=== PATIENT | female | born 1945 | race Caucasian/White ===

== ENCOUNTER 2018-02-14 23:19 | Observation (INO) ==
[2018-02-14] MEDS ORDERED: Morphine Sulfate Inj 2 MG/ML Vial IV.PUSH ONE (23:38)
--- NOTE | 2018-02-14 23:39 | ED ---
HPI General Chief Complaint: Shortness of Breath/Dyspnea Stated Complaint: Back pain Time Seen by Provider: 02/14/18 23:32 Source: patient and family Mode of arrival: ambulatory Limitations: no limitations History of Present Illness 73-year-old female came to the emergency room with her family with history of shortness of breath and mid back pain for past 1 day. Symptoms have progressively worsened. Patient says the mid back pain is a dull ache, nonradiating and 7 out of 10. The pain is worse upon inspiration. Patient has been coughing but it is mostly dry. No history of fever or chills. No history of sick contacts. No past history of DVT or PE. No prolonged immobilization history. Patient says she is otherwise healthy and just takes a baby aspirin twice a week. However her blood pressure on arrival was 185 systolic. No history of headache or blurred vision. No history of leg swelling. Patient is not a smoker. Complaint: Reports shortness of breath and cough Onset (ago): day(s) Severity: moderate Consistency/Duration: constant Relieving factors: nothing Exacerbating factors: coughing and inspiration Associated symptoms: Reports chest pain Treatment prior to arrival: Reports none Related Data Home Medications Medication Instructions Recorded Confirmed lansoprazole 30 mg PO DAILY 02/15/18 02/15/18 Allergies Allergy/AdvReac Type Severity Reaction Status Date / Time No Known Allergies Allergy Verified 02/14/18 23:23 Review of Systems ROS: all other systems reviewed are negative PMFSH History History Provided By: Patient Medical History Medical History (Reviewed 02/15/18 @ 01:16 EST by Germán Shin MD) GERD (gastroesophageal reflux disease) (Acute) Social History Social History (Reviewed 02/15/18 @ 01:16 EST by Germán Shin MD) Substance History: No History of Abuse Second Hand Smoke Exposure: Yes Smoking Status: Never smoker How Often Do You Have a Drink Containing Alcohol: Never Recent Travel in [facility] within the Last 8 Weeks: Yes Recent Out of Country Travel within the Last 8 Weeks: Yes Exam Narrative Exam Narrative: GENERAL: Awake, alert, anxious, mild distress SKIN: Focused skin assessment warm/dry. HEAD: Atraumatic. Normocephalic. EYES: Pupils equal and round. No scleral icterus. No injection or drainage. ENT: No nasal bleeding or discharge. Mucous membranes pink and moist. NECK: Trachea midline. No JVD. CARDIOVASCULAR: Regular rate and rhythm. No murmur appreciated. RESPIRATORY: No accessory muscle use. Clear to auscultation. Breath sounds equal bilaterally. GASTROINTESTINAL: Abdomen soft, non-tender, nondistended. Hepatic and splenic margins not palpable. MUSCULOSKELETAL: No obvious deformities. No clubbing. No cyanosis. No edema. NEUROLOGICAL: Awake and alert. No obvious cranial nerve deficits. Motor grossly within normal limits. Normal speech. PSYCHIATRIC: Appropriate mood and affect; insight and judgment normal. Course Initial Documented Vital Signs Temperature 98.4 F 02/14/18 23:20 Pulse Rate 85 02/14/18 23:20 Respiratory Rate 16 02/14/18 23:20 Blood Pressure 204/94 H 02/14/18 23:20 Pulse Oximetry 96 02/14/18 23:20 Last Documented Vital Signs Temperature 97.7 F 02/15/18 08:00 Pulse Rate 54 L 02/15/18 08:00 Respiratory Rate 16 02/15/18 08:00 Blood Pressure 132/75 02/15/18 08:00 Pulse Oximetry 96 02/15/18 08:10 Medical Decision Making MDM Narrative Medical decision making narrative: 1:16 AM patient was given morphine for her pain after which the pain subsided to a level 3-4. Blood pressure has satisfactory come down. Patient appears to be more relaxed at this point. Blood test results are back and patient is hyperglycemic but rest of her test results are within normal limits. A CT pulmonary angiogram was ordered to rule out PE given her symptoms which is negative for PE. I decided to admit her to the chest pain center. I explained this to the patient and her family and she is in agreement with that. Patient has never had a stress test in the past. Medical Screen Exam Complete: Yes Emergency Medical Condition: Yes Lab Data Result diagrams: 02/14/18 23:35 02/14/18 23:35 Lab Results 02/14/18 02/14/18 02/14/18 Range/Units 23:35 23:35 23:35 WBC 9.3 (4.0-11.0) th/mm3 RBC 3.80 L (4.00-5.30) mil/mm3 Hgb 12.9 (11.6-15.3) gm/dL Hct 39.2 (35.0-46.0) % MCV 102.9 H (80.0-100.0) fL MCH 34.0 (27.0-34.0) pg MCHC 33.0 (32.0-36.0) % RDW 13.4 (11.6-17.2) % Plt Count 242 (150-450) th/mm3 MPV 8.3 (7.0-11.0) fL Neut % (Auto) 61.6 (16.0-70.0) % Lymph % (Auto) 26.1 (9.0-44.0) % [place] % (Auto) 10.4 H (0.0-8.0) % Eos % (Auto) 1.6 (0.0-4.0) % Baso % (Auto) 0.3 (0.0-2.0) % Neut # (Auto) 5.7 (1.8-7.7) th/mm3 Lymph # (Auto) 2.4 (1.0-4.8) th/mm3 [place] # (Auto) 1.0 H (0.0-0.9) th/mm3 Eos # (Auto) 0.2 (0.0-0.4) th/mm3 Baso # (Auto) 0.0 (0.0-0.2) th/mm3 WBC Differential . Differential Comment Auto diff final Sodium 142 (136-145) meq/L Potassium 3.6 (3.5-5.1) meq/L Chloride 104 (98-107) meq/L Carbon Dioxide 31.1 (21.0-32.0) meq/L Anion Gap 7 (5-15) meq/L BUN 21 H (7-18) mg/dL Creatinine 0.98 (0.50-1.00) mg/dL Estimated GFR 56 L (>89) mL/min Random Glucose 187 H (74-106) mg/dL Calcium 8.7 (8.5-10.1) mg/dL Total Bilirubin 0.3 (0.2-1.0) mg/dL AST 20 (15-37) U/L ALT 23 (10-53) U/L Alkaline Phosphatase 90 (45-117) U/L Total Creatine Kinase (26-192) U/L Troponin I Less than 0.02 L (0.02-0.05) ng/mL B-Natriuretic Peptide 20 (0-100) pg/mL Total Protein 7.0 (6.4-8.2) g/dL Albumin 3.6 (3.4-5.0) g/dL 02/15/18 02/15/18 Range/Units 02:31 05:00 WBC (4.0-11.0) th/mm3 RBC (4.00-5.30) mil/mm3 Hgb (11.6-15.3) gm/dL Hct (35.0-46.0) % MCV (80.0-100.0) fL MCH (27.0-34.0) pg MCHC (32.0-36.0) % RDW (11.6-17.2) % Plt Count (150-450) th/mm3 MPV (7.0-11.0) fL Neut % (Auto) (16.0-70.0) % Lymph % (Auto) (9.0-44.0) % [place] % (Auto) (0.0-8.0) % Eos % (Auto) (0.0-4.0) % Baso % (Auto) (0.0-2.0) % Neut # (Auto) (1.8-7.7) th/mm3 Lymph # (Auto) (1.0-4.8) th/mm3 [place] # (Auto) (0.0-0.9) th/mm3 Eos # (Auto) (0.0-0.4) th/mm3 Baso # (Auto) (0.0-0.2) th/mm3 WBC Differential Differential Comment Sodium (136-145) meq/L Potassium (3.5-5.1) meq/L Chloride (98-107) meq/L Carbon Dioxide (21.0-32.0) meq/L Anion Gap (5-15) meq/L BUN (7-18) mg/dL Creatinine (0.50-1.00) mg/dL Estimated GFR (>89) mL/min Random Glucose (74-106) mg/dL Calcium (8.5-10.1) mg/dL Total Bilirubin (0.2-1.0) mg/dL AST (15-37) U/L ALT (10-53) U/L Alkaline Phosphatase (45-117) U/L Total Creatine Kinase 72 70 (26-192) U/L Troponin I Less than 0.02 L Less than 0.02 L (0.02-0.05) ng/mL B-Natriuretic Peptide (0-100) pg/mL Total Protein (6.4-8.2) g/dL Albumin (3.4-5.0) g/dL Imaging Data Radiologist's impression: Chest X-Ray 02/14/18 23:32 CONCLUSION: No acute disease Chest CTA 02/15/18 00:00 CONCLUSION: This study is negative for pulmonary embolism. ECG Data Attestation: I personally reviewed and interpreted this ECG as follows: Interpretation: Twelve-lead EKG was reviewed by me. Normal sinus rhythm, normal axis, nonspecific ST-T wave changes. Heart rate of 73 bpm. Discharge Plan Discharge Disposition Patient Disposition: 30 Still Patient Discharge Condition Condition: Good Discharge Order Discharge Orders: Discharge Order (Routine); Ordered 02/15/18 Ordered By: Nel Hernandez Discharge Details Anticipated Discharge Date: 02/15/18 Physicians Team ED Provider: Germán Shin Primary Care Provider: Cabrera Denis Attending Provider: Ashwin Lainez Other Providers: Rhonda Ellis Status ED Status: Left Department Discharge Information Discharge Date/Time: 02/15/18 02:44
[2018-02-14 23:59] LABS: Baso % (Auto) 0.3 % (0.0-2.0); Eos # (Auto) 0.2 th/mm3 (0.0-0.4); Eos % (Auto) 1.6 % (0.0-4.0); Hematocrit 39.2 % (35.0-46.0); Hemoglobin 12.9 gm/dL (11.6-15.3); Lymph # (Auto) 2.4 th/mm3 (1.0-4.8); Lymph % (Auto) 26.1 % (9.0-44.0); Mean Corpuscular Volume 102.9 fL (80.0-100.0); Mean Platelet Volume 8.3 fL (7.0-11.0); Mono % (Auto) 10.4 % (0.0-8.0); Neut # (Auto) 5.7 th/mm3 (1.8-7.7); Neut % (Auto) 61.6 % (16.0-70.0); Platelet Count 242 th/mm3 (150-450); Red Cell Distribution Width 13.4 % (11.6-17.2); White Blood Count 9.3 th/mm3 (4.0-11.0)
--- NOTE | 2018-02-15 00:06 | XR ---
EXAM DATE: 02/14/2018 11:58 PM EDT AGE/SEX: 73 years / Female INDICATIONS: Upper left side chest and back pain for 3 days. CLINICAL DATA: This is the patient's initial encounter. Patient reports that signs and symptoms have been present for 3 days and indicates a pain score of 6/10. MEDICAL/SURGICAL HISTORY: Gastroesophageal reflux disease. None. COMPARISON: No prior exams available for comparison. FINDINGS: A single AP view of the chest demonstrates the lungs to be symmetrically aerated without evidence of mass, infiltrate or effusion. The cardiomediastinal contours are unremarkable. Osseous structures a re intact. CONCLUSION: No acute disease Electronically signed by: August Jimenez MD 02/15/2018 12:05 AM EDT
[2018-02-15 00:13] LABS: Albumin 3.6 g/dL (3.4-5.0); Anion Gap 7 meq/L (5-15); Aspartate Aminotransferase 20 U/L (15-37); Blood Urea Nitrogen 21 mg/dL (7-18); Calcium 8.7 mg/dL (8.5-10.1); Carbon Dioxide 31.1 meq/L (21.0-32.0); Chloride 104 meq/L (98-107); Glomerular Filtration Rate 56 mL/min (>89); Glucose,Random 187 mg/dL (74-106); Potassium 3.6 meq/L (3.5-5.1); Sodium 142 meq/L (136-145)
[2018-02-15 00:18] LABS: Alanine Aminotransferase 23 U/L (10-53); Alkaline Phosphatase 90 U/L (45-117)
--- NOTE | 2018-02-15 01:13 | CT ---
EXAM DATE: 02/15/2018 12:55 AM EDT AGE/SEX: 73 years / Female INDICATIONS: Shortness of breath, back pain and cough for two days. CLINICAL DATA: This is the patient's initial encounter. Patient reports that signs and symptoms have been present for 1 day and indicates a pain score of 8/10. MEDICAL/SURGICAL HISTORY: Gastroesophageal reflux disease. None. RADIATION DOSE: 7.86 CTDI (mGy) COMPARISON: C, CHEST 1V SINGLE AP, 02/14/2018. . TECHNIQUE: Volumetric scanning was performed using a multi-row detector CT scanner during bolus infu nawaf of 70 ml Omnipaque 350 (iohexol) nonionic water-soluble contrast as a single exam dose. The aram a was post processed with a variety of visualization algorithms including full volume maximum intensi ty projection and sliding thin slab reformation. Using automated exposure control and adjustment of the mA and/or kV according to patient size, radiation dose was kept as low as reasonably achievable t o obtain optimal diagnostic quality images. DICOM format image data is available electronically for review and comparison. FINDINGS: Pulmonary Arteries: No filling defects are seen in the pulmonary arteries out to the subsegmental ve ssels. The left and right pulmonary arteries are normal in diameter. Lung: No infiltrates seen. Effusion: None. Mediastinum: No evidence of mediastinal or hilar adenopathy. Other: The axilla is unremarkable. CONCLUSION: This study is negative for pulmonary embolism. Electronically signed by: August Jimenez MD 02/15/2018 1:11 AM EST
[2018-02-15 03:20] LABS: Creatine Kinase 72 U/L (26-192)
[2018-02-15 05:12] VITALS: RESP 16; TEMP 97.7; O2SAT 96
[2018-02-15 05:47] LABS: Creatine Kinase 70 U/L (26-192)
[2018-02-15] MEDS ORDERED: Acetaminophen 500 MG Tablet PO PRN (08:00)
[2018-02-15 08:36] VITALS: BP 132/75
[2018-02-15 08:49] VITALS: PULSE 54
--- NOTE | 2018-02-15 10:03 | P.HPCA ---
History of Present Illness Service: Chest pain center Primary Care Physician: Cabrera Denis Chief Complaint: Sharp mid back pain of seconds duration History of Present Illness: 73-year-old lady who recently took a trip to [facility] with her . They both contacted a cold-like illness while there and she has persisted with a cough ever since. The cough is nonproductive there is been no fever or chills but it is been worrisome. About 3 days ago she began to have some extremely sharp pain in her mid back precipitated by coughing or deep breathing but occasionally occurring without provocation. The pain is 7 out of 10 but lasts for only a few seconds. It is not precipitated by exertion and relieved by rest and there are no other associated factors. Patient does have a history of osteopenia but has had no further problems with her back. Her only other history is that of acid reflux followed by Dr. Cain. Review of Systems All other systems reviewed negative except as stated in HPI PMFSH - History History Provided By: Patient - Medical History Medical History: Medical History (Last Reviewed 02/15/18 @ 01:16 EST by Germán Shin MD) GERD (gastroesophageal reflux disease) - Social History I have reviewed the patient's Social History: Yes - Tobacco History Second Hand Smoke Exposure: Yes Smoking Status: Never smoker - Alcohol History How Often Do You Have a Drink Containing Alcohol: Never - Substance Use History Substance History: No History of Abuse - Travel History Recent Travel in the [place] Within the Last 8 Weeks: Yes Recent Travel Out of the Country Within the Last 8 Weeks: Yes - Immunization History Tetanus Immunization: <5 Years Medications and Allergies Active Medications: Active Medications Acetaminophen (Tylenol) 500 mg PO Q4H PRN PRN Reason: HEADACHE Nitroglycerin (Nitrostat Sl) 0.4 mg SL Q5M PRN PRN Reason: CHEST PAIN Ondansetron HCl (Zofran Inj) 4 mg IV.PUSH Q6H PRN PRN Reason: NAUSEA Sodium Chloride (Ns Flush) 2 ml IV.FLUSH UNSCH PRN PRN Reason: FLUSH AFTER USING IV ACCESS Last Admin: 02/14/18 23:44 Dose: 2 ml Sodium Chloride (Ns Flush) 2 ml IV.FLUSH BID VICKI Last Admin: 02/15/18 08:12 Dose: 2 ml Sodium Chloride (Ns Flush) 2 ml IV.FLUSH PRN PRN PRN Reason: FLUSH AFTER USING IV ACCESS Allergies Allergy/AdvReac Type Severity Reaction Status Date / Time No Known Allergies Allergy Verified 02/14/18 23:23 Home Medications Medication Instructions Recorded Confirmed Type lansoprazole 30 mg PO DAILY 02/15/18 02/15/18 History Exam Vital signs: Vital Signs 02/14/18 23:20 02/14/18 23:23 02/14/18 23:43 Temperature 98.4 F Pulse Rate 85 59 L Respiratory Rate 16 18 Blood Pressure 204/94 H 127/61 Pulse Oximetry 96 96 98 02/14/18 23:51 02/15/18 02:18 02/15/18 04:00 Temperature 97.7 F Pulse Rate 72 54 L 65 Respiratory Rate 18 14 16 Blood Pressure 162/72 H 115/63 129/60 Pulse Oximetry 100 97 96 02/15/18 08:00 02/15/18 08:10 Temperature 97.7 F Pulse Rate 54 L Respiratory Rate 16 Blood Pressure 132/75 Pulse Oximetry 97 96 Intake & Output 02/14/18 02/15/18 02/15/18 19:59 06:59 18:59 Weight Other: # Voids Narrative: Well-nourished well-developed lady sitting in bed resting comfortably with and son present in the room. Skin warm and dry Head normocephalic atraumatic Eyes PERRLA EOMI sclera clear Mouth mucous membranes moist and well papillated no lesions Neck supple no JVD masses nodes or bruits Chest no pain or tenderness breath sounds are clear no rales wheezes or rhonchi Cardiovascular regular sinus rhythm with no gallop rub or murmur Abdomen soft nontender no guarding or rebound and no masses Extremities no clubbing cyanosis or edema Neurologic is intact with good but symmetric motion upper and lower extremities and intact cranial nerves Results 02/14/18 23:35 02/14/18 23:35 Cardiac Enzymes 02/14/18 02/14/18 02/15/18 Range/Units 23:35 23:35 02:31 AST 20 (15-37) U/L Troponin I Less than 0.02 L Less than 0.02 L (0.02-0.05) ng/mL B-Natriuretic Peptide 20 (0-100) pg/mL 02/15/18 Range/Units 05:00 AST (15-37) U/L Troponin I Less than 0.02 L (0.02-0.05) ng/mL B-Natriuretic Peptide (0-100) pg/mL Coagulation 02/14/18 Range/Units 23:35 B-Natriuretic Peptide 20 (0-100) pg/mL CBC 02/14/18 Range/Units 23:35 WBC 9.3 (4.0-11.0) th/mm3 RBC 3.80 L (4.00-5.30) mil/mm3 Hgb 12.9 (11.6-15.3) gm/dL Hct 39.2 (35.0-46.0) % Plt Count 242 (150-450) th/mm3 Neut # (Auto) 5.7 (1.8-7.7) th/mm3 Lymph # (Auto) 2.4 (1.0-4.8) th/mm3 [place] # (Auto) 1.0 H (0.0-0.9) th/mm3 Eos # (Auto) 0.2 (0.0-0.4) th/mm3 Baso # (Auto) 0.0 (0.0-0.2) th/mm3 Comprehensive Metabolic Panel 02/14/18 Range/Units 23:35 Sodium 142 (136-145) meq/L Potassium 3.6 (3.5-5.1) meq/L Chloride 104 (98-107) meq/L Carbon Dioxide 31.1 (21.0-32.0) meq/L BUN 21 H (7-18) mg/dL Creatinine 0.98 (0.50-1.00) mg/dL Calcium 8.7 (8.5-10.1) mg/dL AST 20 (15-37) U/L ALT 23 (10-53) U/L Alkaline Phosphatase 90 (45-117) U/L Total Protein 7.0 (6.4-8.2) g/dL Albumin 3.6 (3.4-5.0) g/dL Intake and Output 02/14/18 02/15/18 02/15/18 23:59 06:59 14:59 Other: # Voids Weight - Imaging and Cardiology Imaging: Impressions Chest X-Ray 02/14/18 23:32 CONCLUSION: No acute disease Chest CTA 02/15/18 00:00 CONCLUSION: This study is negative for pulmonary embolism. EKG interpretations - EKG EKG results cardiology: interpreted by ROBBIE PIERCE Caprini VTE Risk Assessment Caprini VTE Risk Assessment: No/Low Risk (score <= 1) Caprini Risk Assessment Model: Point Value = 1 Point Value = 2 Point Value = 3 Point Value = 5 Age 41-60 Minor surgery BMI > 25 kg/m2 Swollen legs Varicose veins or History of unexplained or recurrent spontaneous Oral contraceptives or hormone replacement Sepsis (< 1 month) Serious lung disease, including pneumonia (< 1 month) Abnormal pulmonary function Acute myocardial infarction Congestive heart failure (< 1 month) History of inflammatory bowel disease Medical patient at bed rest Age 61-74 Arthroscopic surgery Major open surgery (> 45 min) Laparoscopic surgery (> 45 min) Malignancy Confined to bed (> 72 hours) Immobilizing plaster cast Central venous access Age >= 75 History of VTE Family history of VTE Factor V Leiden Prothrombin [id number] Lupus anticoagulant Anticardiolipin antibodies Elevated serum homocysteine Heparin-induced thrombocytopenia Other congenital or acquired thrombophilia Stroke (< 1 month) Elective arthroplasty Hip, pelvis, or leg fracture Acute spinal cord injury (< 1 month) Prophylaxis Regimen: Total Risk Factor Score Risk Level Prophylaxis Regimen 0-1 Low Early ambulation 2 Moderate Order ONE of the following: *Sequential Compression Device (SCD) *Heparin 5000 units SQ BID 3-4 Higher Order ONE of the following medications: *Heparin 5000 units SQ TID *Enoxaparin/Lovenox 40 mg SQ daily (WT < 150 kg, CrCl > 30 mL/min) *Enoxaparin/Lovenox 30 mg SQ daily (WT < 150 kg, CrCl > 10-29 mL/min) *Enoxaparin/Lovenox 30 mg SQ BID (WT < 150 kg, CrCl > 30 mL/min) AND/OR *Sequential Compression Device (SCD) 5 or more Highest Order ONE of the following medications: *Heparin 5000 units SQ TID (Preferred with Epidurals) *Enoxaparin/Lovenox 40 mg SQ daily (WT < 150 kg, CrCl > 30 mL/min) *Enoxaparin/Lovenox 30 mg SQ daily (WT < 150 kg, CrCl > 10-29 mL/min) *Enoxaparin/Lovenox 30 mg SQ BID (WT < 150 kg, CrCl > 30 mL/min) AND *Sequential Compression Device (SCD) Assessment and Plan - Plan Very pleasant 73-year-old lady with intermittent sharp back pain associated with coughing and deep breathing. Current presentation is clearly noncardiac and almost certainly related to musculoskeletal issues from her protracted coughing. Nevertheless she exercises walk and walks regularly and has a normal EKG therefore she will be evaluated with a walking stress test. If negative as anticipated she will be discharged to further follow-up by Dr. Delmy Nuñez for treatment of her cough and evaluation and treatment of her back issue. End dictation - Attending Attestation I attest that the evaluation and treatment given during this admission appropriate to the patient's presentation unnecessary further care. H&P: Quality - VTE Deep Vein Thrombosis/Pulmonary Embolism Present on Admission: No
--- NOTE | 2018-02-15 10:07 | ECG ---
Date Performed: 02/15/2018 Time Performed: 05:21:18 PTAGE: 73 years EKG: SINUS BRADYCARDIA POSSIBLE RIGHT VENTRICULAR CONDUCTION DELAY BORDERLINE ECG NO PREVIOUS TRACING DOCTOR: Ashwin Lainez Interpretating Date/Time 02/15/2018 10:06:58
--- NOTE | 2018-02-15 10:08 | ECG ---
Date Performed: 02/15/2018 Time Performed: 02:29:36 PTAGE: 73 years EKG: SINUS BRADYCARDIA POSSIBLE RIGHT VENTRICULAR CONDUCTION DELAY BORDERLINE ECG No significant change NO PREVIOUS TRACING DOCTOR: Ashwin Lainez Interpretating Date/Time 02/15/2018 10:07:27
--- NOTE | 2018-02-15 10:08 | ECG ---
Date Performed: 02/14/2018 Time Performed: 23:33:05 PTAGE: 73 years EKG: Sinus rhythm NORMAL ECG NO PREVIOUS TRACING DOCTOR: Ashwin Lainez Interpretating Date/Time 02/15/2018 10:08:20
--- NOTE | 2018-02-16 07:23 | TR ---
Date Performed: 02/15/2018 Time Performed: 10:46:26 DOCTOR: Nick Layton DRUG LIST: CLINICAL HISTORY: CHEST PAIN REASON FOR TEST: Chest pain REASON FOR ENDING: OBSERVATION: CONCLUSION: Rikki protocol completed. Stopped sec to exceeding target heart rate and leg fatigue . Maximum SX=773 Max HR Achieved=89.0% Maximum BP=N/A Total Exercise Time=3:01. No reprod chest disco mfort. No ectopy. Normal bp response. No change in st t segments, non-diagnostic. Fair exercise iraida ance. Recovery quick and unremarkable. COMMENTS: Patient exercised using the Rikki protocol. No electrocardiographic changes were seen to suggest ischemia. Hemodynamic response to exercise was normal. No significant arrhythmia was prese nt.
== END 2018-02-15 12:28 | disposition home or self-care (01) ==
LOC: NEPE 23:19 → NEDA 23:19 → NEPFCDU 02-15 02:40
PROVIDERS: ADMIT Internal Medicine Interventional Cardiology; ATTEND Internal Medicine Interventional Cardiology